=== PATIENT | female | born 1985 | race Caucasian/White ===

== ENCOUNTER 2018-12-09 09:59 | Emergency (ER) | payer OTHER ==
[~2018-12-09] VITALS: Wt 87.0 kg
[~2018-12-09 09:59] MED LIST: CALC1TAB98 PO; IRON18TA PO; PREN1TAB49 PO
[2018-12-09 10:01] VITALS: BP 150/78; PULSE 79; RESP 18
[2018-12-09] MEDS ORDERED: CEPH-443 PO (12:25)
--- NOTE | 2018-12-09 12:29 | ERD ---
ER Documentation Chief Complaint Chief Complaint AP X 2 DAYS, 6 WEEKS HPI This is a 33-year-old female who is about 6 weeks G3, P2 complaining of mild pelvic pain for the past 2 days. No vaginal bleeding. She has no dysuria hematuria but she does have increased urinary frequency. No fever. No nausea or vomiting. ROS All systems reviewed and are negative except as per history of present illness. Medications Home Meds Active Scripts Cephalexin* (Keflex*) 500 Mg Capsule, 500 MG PO TID for 5 Days, CAP Prov:JEAN-PAUL CASTELLON PA-C 12/09/18 Reported Medications Calcium Carbonate-Vitamin D3 (Calcium + D 600 Tablet) 1 Tab Tablet, 1 TAB PO DAILY 12/25/13 Iron (Iron) 18 Mg Tablet, 18 MG PO DAILY 08/10/11 Vits W-Ca,Fe,Fa(<1MG) () 1 Tab Tablet, 1 TAB PO DAILY 08/10/11 Allergies Allergies: Coded Allergies: No Known Allergies (Verified Allergy, Unknown, 03/15/14) PMhx/Soc Medical and Surgical Hx: pt denies Medical Hx History of Surgery: Yes (appendectomy 2007,CHOLECYSTECTOMY) Anesthesia Reaction: No Hx Miscellaneous Medical Probl: No Hx Alcohol Use: No Hx Substance Use: No Hx Tobacco Use: No Smoking Status: Never smoker FmHx Family History: No diabetes Physical Exam Vitals Vital Signs Date Temp Pulse Resp B/P (MAP) Pulse Ox O2 O2 Flow FiO2 Time Delivery Rate 12/09/18 98.6 79 18 150/78 99 10:01 (102) Physical Exam INITIAL VITAL SIGNS: Reviewed by me GENERAL: Awake, alert and oriented x 4, well appearing, nontoxic, speaking in full sentences. No acute distress HEAD: Atraumatic NECK: Supple. No masses. Full range of motion. No meningismus. No midline tenderness. EYES: EOMI. PERRL. RESPIRATORY: Clear to auscultation bilaterally. Symmetric chest wall rise. No wheezing or rales. No accessory muscle use. CV: Regular rate and rhythm. No murmurs, rubs, or gallops. ABDOMEN: Soft, non-distended. Nontender. Negative [place]. Negative McBurneys point tenderness. No CVA tenderness bilaterally. No guarding. No rebound. Result Diagram: 12/09/18 1053 Results 24 hrs Laboratory Tests Test 12/09/18 10:53 12/09/18 10:54 White Blood Count 9.4 10^3/ul Red Blood Count 4.40 10^6/ul Hemoglobin 12.7 g/dl Hematocrit 38.9 % Mean Corpuscular Volume 88.4 fl Mean Corpuscular Hemoglobin 28.9 pg Mean Corpuscular Hemoglobin Concent 32.6 g/dl Red Cell Distribution Width 12.7 % Platelet Count 276 10^3/UL Mean Platelet Volume 10.3 fl Immature Granulocytes % 0.400 % Neutrophils % 70.6 % Lymphocytes % 20.9 % Monocytes % 6.2 % Eosinophils % 1.7 % Basophils % 0.2 % Nucleated Red Blood Cells % 0.0 /100WBC Immature Granulocytes # 0.040 10^3/ul Neutrophils # 6.6 10^3/ul Lymphocytes # 2.0 10^3/ul Monocytes # 0.6 10^3/ul Eosinophils # 0.2 10^3/ul Basophils # 0.0 10^3/ul Nucleated Red Blood Cells # 0.0 10^3/ul Beta HCG, Quantitative 4358.4 mIU/ml Urine Color YELLOW Urine Clarity SLIGHTLY CLOUDY Urine pH 6.0 Urine Specific [place] 1.011 Urine Ketones NEGATIVE mg/dL Urine Nitrite NEGATIVE mg/dL Urine Bilirubin NEGATIVE mg/dL Urine Urobilinogen NEGATIVE mg/dL Urine Leukocyte Esterase 2+ [place]on[place]/ul Urine Microscopic RBC 4 /HPF Urine Microscopic WBC 13 /HPF Urine Squamous Epithelial Cells FEW /HPF Urine Bacteria FEW /HPF Urine Hemoglobin 1+ mg/dL Urine Glucose NEGATIVE mg/dL Urine Total Protein NEGATIVE mg/dl Procedures/MDM The differential diagnosis includes but is not limited to threatened/inc omplete/inevitable/complete , ectopic , non- related bleeding, and others. Beta hCG is 4538. Ultrasound No intrauterine gestation visualized.Differential diagnosis includes early , missed or ectopic . Follow-up ultrasound and HCG levels is recommended. Patient given copies of labs and everything and recommend to come back in 2 days or sooner for any new or worsening symptoms. Reviewed the case with Dr. Cortés who agrees with the plan. Prescription for Keflex given for urinary tract infection. Patient counseled regarding my diagnostic impression and care plan. Prior to discharge all questions answered. Pt agrees with treatment plan and understands strict return precautions. Pt is instructed to follow up with primary care provider within 24-48 hours. Precautionary instructions provided including instructions to return to the ER if not improving or for any worsening or changing symptoms or concerns. Departure Diagnosis: Primary Impression: Cystitis Additional Impression: Pelvic pain affecting in first trimester, antepartum Condition: Stable Patient Instructions: Cystitis, Pelvic Pain, Unknown Cause Additional Instructions: Llame al doctor MAANA y lucinda alon ROBINSON PARA DENTRO DE 1-2 [place].Dgale a la secretaria que nosotros le instruimos hacer esta robinson.Avise o llame si worley condicin se empeora antes de la robinson. Regresa aqui si peor o no mejor. JEAN-PAUL CASTELLON PA-C December 09, 2018 12:29
== END 2018-12-09 12:32 | disposition home or self-care (01) ==
LOC: FTE 09:59
DX: O23.11 Infections of bladder in pregnancy, first trimester (principal); R10.2 Pelvic and perineal pain; Z3A.01 Less than 8 weeks gestation of pregnancy
CPT/HCPCS: 36415; 76801; 76817; 81001; 84702; 85025; 86900; 86901; Z7502